=== PATIENT | female | born 1955 | race Caucasian/White ===

== ENCOUNTER → 2017-04-20 | Outpatient (CLI) | payer BC | LOC: MC.RAD 07:58 | DX: Z12.31 Encounter for screening mammogram for malignant neoplasm of breast (principal); N63.10 Unspecified lump in the right breast, unspecified quadrant; N63.20 Unspecified lump in the left breast, unspecified quadrant ==

== ENCOUNTER → 2018-05-30 | Outpatient (CLI) | payer BC ==
[~2018-05-30] MED LIST: ESTRACE0.5 MG PO; GLUCOSAMINE & C1 CA2 PO; LEVOXYL0.075 MG PO; MASON NATURAL1200 MG PO; MULTIVITAMIN SEN PO; VITAMIN D32000 IU PO
== END ==
LOC: MC.RAD 08:12
DX: Z12.31 Encounter for screening mammogram for malignant neoplasm of breast (principal)

== ENCOUNTER → 2019-08-06 | Outpatient (CLI) | payer BC | LOC: COL.RAD 12:36 | DX: M18.0 Bilateral primary osteoarthritis of first carpometacarpal joints (principal) | CPT/HCPCS: J3301; Q9967 ==

== ENCOUNTER → 2019-08-19 | Outpatient (CLI) | payer BC | LOC: MC.RAD 13:05 | DX: Z12.31 Encounter for screening mammogram for malignant neoplasm of breast (principal) ==

== ENCOUNTER → 2019-08-21 | Outpatient (CLI) | payer BC | LOC: MC.RAD 09:49 | DX: N60.01 Solitary cyst of right breast (principal) | CPT/HCPCS: G0279 ==

== ENCOUNTER → 2021-07-21 | Outpatient (CLI) | payer MEDICARE, BC | LOC: MC.RAD 05-12 09:45 | DX: Z12.31 Encounter for screening mammogram for malignant neoplasm of breast (principal) ==